=== PATIENT | male | born 1960 ===

== ENCOUNTER 2016-12-13 08:45 | Day surgery (SDC) | payer SELFPAY ==
[2016-12-13] MEDS ORDERED: Lactated Ringer's 500 ML IV ONE (11:37)
[2016-12-13] MEDS ORDERED: Midazolam 2 MG/2 ML VIAL ONE (11:54)
[2016-12-13] MEDS ORDERED: Propofol 10 mg/ml Inj (20 ML) ONE ×2 (11:54→12:34)
[2016-12-13 12:43] VITALS: BP 102/57; PULSE 63; RESP 15; TEMP 96.8; O2SAT 98
== END 2016-12-13 13:00 | disposition home or self-care (01) ==
LOC: H.ENDO 08:45
PROVIDERS: ATTEND Internal Medicine Gastroenterology
DX: Z12.11 Encounter for screening for malignant neoplasm of colon (principal); D12.5 Benign neoplasm of sigmoid colon; K64.8 Other hemorrhoids; I10 Essential (primary) hypertension; E78.5 Hyperlipidemia, unspecified; E11.9 Type 2 diabetes mellitus without complications; Z80.1 Family history of malignant neoplasm of trachea, bronchus and lung; Z82.49 Family history of ischemic heart disease and other diseases of the circulatory system
CPT/HCPCS: 45380; 88305; J2250; J2704; J7120